=== PATIENT | female | born 1950 | race Caucasian/White ===

== ENCOUNTER → 2017-03-06 | Outpatient (CLI) | payer MEDICARE, OTHER ==
[~2017-03-06] MED LIST: ACETAMINOPHEN PO; ALBUTEROL MININEB NEB; ALBUTEROL17 GM INH; ALBUTEROL2.5 MG/0.5 IH; ALDACTONE25 MG PO; AMBIEN10 MG PO; AMIODARONE PO; ASCORBIC ACID250 MG PO; ASPIRIN PO; ASPIRIN81 M1 PO; AUGMENTIN875 MG PO; BUMEX1 MG PO; COREG6.25 MG PO; DOXYCYCLINE PO; ENDUR-ACIN250 MG PO; FISH OIL 1,0001 CAP PO; HYDRALAZINE HCL50 MG PO; ISOSORBIDE DINI30 MG PO; K-DUR10 MEQ PO; LASIX20 MG PO; LEVAQUIN PO; LISINOPRIL2.5 MG PO; LORAZEPAM1 MG PO; LORTAB 5/500 TA1 TA1 PO; MEGACE PO; MULTI VITAMIN1 EACH PO; NITROLINGUAL12 G1 TL; NORCO 5/325 TAB1 TAB PO; NYSTATIN5 ML PO; OXYGEN; PERCOCET5/325 PO; PLAVIX PO; PREDNISONE PO; PRILOSEC40 MG PO; ROLLING WALKER; SULAR25.5 MG PO; SYMBICORT; SYMBICORT INH; VYTORIN 10-40 T1 TAB PO; ZETIA PO; ZITHROMAX PO; ZOCOR PO; ZOFRAN PO; ZOLOFT100 MG PO
--- NOTE | ~2017-03-06 | CT55 ---
[facility] [email or web address] A Service of [facility] RADIOLOGY TEXT RESULTS PATIENT: TEN ISRAEL LOCATION: [facility] : 50 UNIT #: [id number] AGE: [address]: Jeffrey Haile MD SEX: F ORDER DR: [id number] [place] [id number] O MR#: [id number] Acc #: [id number] NAME: TEN ISRAEL : 1950 SEX: F STUDY DATE/TIME: 03/06/2017 12:52 UNIT: [facility] ROOM: STUDY DESCRIPTION: CT Chest W Con Attending Physician: Jeffrey Haile M.D. Ordering Physician: Jeffrey Haile M.D. Primary Care Physician: Camilla Zafar M.D. MEDICAL IMAGING REPORT This report is preliminary unless electronic signature is present. EXAM CT chest with contrast INDICATIONS Left lung cancer. Restaging. Observation for metastatic disease. PROCEDURE Contrast-enhanced CT of the chest. This CT exam was performed with one or more of the following radiation dose reduction techniques: automatic exposure control, adjustment of mA and/or kV according to patient size, and iterative reconstruction. COMPARISON STUDIES 09/10/2016 FINDINGS Severe centrilobular emphysema. Nodular opacity left upper lobe measures 1.4 cm and is unchanged from the prior. This has the appearance of scarring. There is complete volume loss in the left lower lobe with significant bronchiectasis. This is stable finding from the prior. No new nodules. Small left pleural effusion is unchanged. No new or enlarging adenopathy in the chest. No acute findings in the included upper abdomen. No aggressive appearing bone lesion. IMPRESSION 1. Stable nodule in the inferior left upper lobe has the appearance of scarring. No new nodule. 2. Severe emphysema with scattered scarring in both lungs. 3. Stable presumed chronic atelectasis of the left lower lobe, with a stable small left pleural effusion. [facility] A Service [facility] RADIOLOGY TEXT RESULTS PATIENT: TEN ISRAEL LOCATION: [facility] : 50 UNIT #: [id number] AGE: [address]: Jeffrey Haile MD SEX: F ORDER DR: Dictated by... David Acosta M.D. THIS IS AN ELECTRONICALLY VERIFIED REPORT David Acosta M.D. at 03/07/2017 10:22 PM LUIS/apollo TD: 03/07/2017 16:38 JOB #: [id number] MEDICAL IMAGING REPORT Page 1 of 1
[2017-03-06 13:42] LABS: POC - CREATININE 0.92 mg/dL (0.44-1.03); POC - GFR >60.0 mL/min (>60)
== END | disposition home or self-care (01) ==
LOC: SCT 12:38 → CCAT 13:00 → SCT 13:20 → CCAT 13:20
PROVIDERS: Internal Medicine Medical Oncology
DX: C34.92 Malignant neoplasm of unspecified part of left bronchus or lung (principal); R91.1 Solitary pulmonary nodule; J43.9 Emphysema, unspecified; J98.11 Atelectasis; J90 Pleural effusion, not elsewhere classified
CPT/HCPCS: 71260; 82565; Q9967